=== PATIENT | female | born 1985 | race African-American/Black ===

== ENCOUNTER 2019-07-30 08:42 | Emergency (ER) | payer MEDICAID, SELFPAY ==
--- NOTE | ~2019-07-30 | XR_ITS ---
XR chest 1V portable DATE: 07/30/2019 11:18 INDICATION: Cough, shortness of breath TECHNIQUE: Portable upright AP chest on 07/30/2019 at 1116 hours COMPARISON: 03/11/2017 AP chest FINDINGS: Normal heart size. No hilar or mediastinal enlargement. No pulmonary infiltrate or consolid ation, pleural effusion or pulmonary vascular congestion or pneumothorax. IMPRESSION: Negative Reviewed, dictated and finalized at location A. IMPRESSION: Negative
[2019-07-30 08:49] VITALS: BP 152/93; PULSE 82; RESP 16; TEMP 37.1; O2SAT 98
--- NOTE | 2019-07-30 09:50 | ECG_ITS ---
Measurements Intervals [place] Rate: 74 P: 38 KS: 170 QRS: 13 QRSD: 108 T: 14 QT: 393 QTc: 438 Interpretive Statements SINUS RHYTHM VENTRICULAR PREMATURE COMPLEXES BORDERLINE T WAVE ABNORMALITY- INFERIOR LEADS BASELINE WANDER- I, II, AVR, AVL, AVF, V1-V6 BORDERLINE ECG Electronically Signed On 07-30-2019 10:22:38 CDT by Hipolito Cedillo D.O.
--- NOTE | 2019-07-30 09:51 | ED.GENADULT ---
HPI - General Adult General Chief complaint: Unspecified Stated complaint: cough, chest pain, headache, fever Time Seen by Provider: 07/30/19 09:39 Source: patient Mode of arrival: ambulatory Limitations: no limitations History of Present Illness HPI narrative: This patient is a 34 year old female who presents with complaint fever, cough, sore throat, headache since yesterday. She reports she developed sore throat yesteday. She also has body aches and weakness. She had a fever at home but she is afebrile in ER. She has not taken any medication for her symptoms. She works in a [employer] facility and she is presents with a cousin who has similar symptoms. Onset (ago): day(s) (2) Relieving factors: none Exacerbating factors: none Associated symptoms: chest pain (with coughing), cough, fever/chills, headaches, nausea/vomiting (nausea) and weakness Related Data Allergies Allergy/AdvReac Type Severity Reaction Status Date / Time No Known Allergies Allergy Unverified 07/30/19 08:52 Review of Systems Review of Systems: All systems reviewed & are unremarkable except as noted in HPI and below Constitutional: Constitutional: Reports fever(s) and Reports weakness ENT: Reports headache(s), Reports nasal congestion and Reports sore throat Cardiovascular: Cardiovascular: Reports chest pain Respiratory: Respiratory: Reports cough Gastrointestinal: Gastrointestinal: Reports abdominal pain, Reports diarrhea and Reports nausea Genitourinary: Genitourinary: Reports no additional female genitourinary complaints Musculoskeletal: Musculoskeletal: Reports myalgias PMFSH Past Medical History Medical History (Updated 07/30/19 @ 13:03 by Peggy Fraire MD) Patient denies medical problems Surgical History Surgical History (Updated 07/30/19 @ 09:52 by Peggy Fraire MD) Previous section Exam Narrative: Exam Narrative: GENERAL: well-nourished, and in no acute distress. HEAD: Normocephalic, atraumatic EYES: PERRLA and EOMI, conjunctiva clear without discharge EARS: TM's clear bilaterally without erythema or dullness NOSE: Nares clear, no rhinorrhea or epistaxis THROAT:Mucous membranes moist, Oropharynx normal without erythema, exudate, peritonsillar swelling or fluctuance NECK: Supple, without lymphadenopathy or mass RESPIRATORY: No respiratory distress, Airway patent, Respirations non-labored, Clear to auscultation without rales, rhonchi or wheeze HEART: Regular rate and rhythm. No murmur heard. Normal peripheral pulses. ABDOMEN: Soft, nontender, nondistended, normal active bowel sounds. No masses. No rebound or guarding, No organomegaly. EXTREMITIES: No edema, normal strength with full range of motion. SKIN: Warm, dry, normal color without rash NEURO: Alert and oriented x3. CN 2-12 grossly intact. No focal deficits. PSYCH: Normal mood and affect. Course Reevaluation(s) Reevaluation #1: PAtient states she feels better. I discussed her COVID swab is pending. She will quarantine until results. Date: 07/30/19 Time: 12:59 Vital Signs Vital signs: Vital Signs Temperature 98.7 F 07/30/19 08:49 Pulse Rate 82 07/30/19 08:49 Respiratory Rate 16 07/30/19 08:49 Blood Pressure 152/93 H 07/30/19 08:49 Pulse Oximetry 98 07/30/19 08:49 Temperature 98.7 F 07/30/19 08:49 Pulse Rate 75 07/30/19 12:22 Respiratory Rate 19 07/30/19 12:22 Blood Pressure 158/77 H 07/30/19 12:22 Pulse Oximetry 99 07/30/19 12:22 Medical Decision Making Vital Signs Vital Signs: Vital Signs Temperature 98.7 F 07/30/19 08:49 Pulse Rate 82 07/30/19 08:49 Respiratory Rate 16 07/30/19 08:49 Blood Pressure 152/93 H 07/30/19 08:49 Pulse Oximetry 98 07/30/19 08:49 Temperature 98.7 F 07/30/19 08:49 Pulse Rate 75 07/30/19 12:22 Respiratory Rate 19 07/30/19 12:22 Blood Pressure 158/77 H 07/30/19 12:22 Pulse Oximetry 99 07/30/19 12:22 Lab Data Lab
[2019-07-30 10:09] LABS: Basophils Percent Auto 0.6 % (0.2-1.2); Eosinophils Absolute Auto 0.3 K/mm3 (0-0.3); Eosinophils Percent Auto 5.1 % (0-4.4); Hematocrit 38.2 % (37.0-47.0); Hemoglobin 12.5 g/dL (12.0-15.0); Immature Granulocyte Absolute 0.03 K/mm3 (0.00-0.031); Immature Granulocyte Percent A 0.6 % (0-0.5); Lymphocytes Percent Auto 22.2 % (18.3-44.2); Mean Corpuscular HGB Conc 32.7 g/dl (32-36); Mean Corpuscular Hemoglobin 29.2 pg (26-34); Mean Corpuscular Volume 89.3 fl (80-100); Mean Platelet Volume 10.7 fl (7.4-10.4); Monocytes Percent Auto 19.6 % (2.6-8.5); Neutrophils Absolute Auto 2.6 K/mm3 (1.3-6.7); Neutrophils Percent Auto 51.9 % (45.5-73.1); Platelet Count Result 273 k/mm3 (150-375); Red Blood Count 4.28 M/mm3 (4.2-5.4); Red Cell Distribution Width 14.4 % (11.5-14.5)
[2019-07-30] MEDS: KETOROLAC 30 MG/ML VIAL (*BKC) IV PUSH (10:09)
[2019-07-30] MEDS: LACTATED RINGERS 1,000 ML 999 ML IV CONT (10:09)
[2019-07-30] MEDS: ONDANSETRON INJ 4 MG/2 ML VIAL IV PUSH (10:09)
[2019-07-30 10:20] LABS: Add Urine Microscopic? YES; Appearance Urine Clear (Clear); Bilirubin Urine Negative (Negative); Blood Urine Negative (Negative); Color Urine Straw (Yellow); Glucose Urine UA Negative (Negative); Ketones Urine Negative (Negative); Leukocyte Esterase Ur Trace LEU/UL (Negative); Mucus Urine Rare /lpf; Nitrate Urine Negative (Negative); Protein Urine Negative (Negative); Squamous Epithelial Cell Urine Many /hpf (Few); Urobilinogen Urine Negative mg/dL (<2.0)
[2019-07-30 10:22] LABS: Alanine Aminotransferase 11 U/L (4-35); Albumin Level 4.1 g/dL (3.5-5.1); Alkaline Phosphatase 85 U/L (38-126); Aspartate Amino Transferase 20 U/L (14-36); Bilirubin,Total 0.4 mg/dL (0.2-1.3); Blood Urea Nitrogen 14 mg/dL (7-17); Calcium 8.8 mg/dL (8.4-10.2); Carbon Dioxide 22 mmol/L (22-30); Chloride 105 mmol/L (98-107); Estimated CRCL calculation 158 ml/min; Estimated Glomerular Filt Rate > 60; Glucose 91 mg/dL (65-105); Lipase 49 U/L (23-300); Potassium 4.1 mmol/L (3.4-5.0); Sodium 134 mmol/L (137-145)
[2019-07-30 10:23] LABS: Lactic Acid Reflex 0.7 mmol/L (0.7-2.1)
[2019-07-30 10:30] LABS: Lactate Dehydrogenase 391 U/L (313-618)
[2019-07-30 10:40] LABS: Monoscreen Negative (Negative); Negative Monotest Control Negative (Negative); Positive Monotest Control Positive (Positive)
[2019-07-30 12:22] VITALS: BP 158/77; PULSE 75; RESP 19; O2SAT 99
[2019-07-30 18:13] LABS: SARS-CoV-2 RNA PCR Positive
== END 2019-07-30 13:28 | disposition home or self-care (01) ==
PROVIDERS: Emergency Provider General Practice
DX: U07.1 COVID-19 (principal); I49.3 Ventricular premature depolarization; R94.31 Abnormal electrocardiogram [ECG] [EKG]
CPT/HCPCS: 36415; 71045; 80053; 81001; 81025; 83605; 83615; 83690; 85025; 86308; 87081; 87086; 87088; 87635; 87804; 87880; 93005; 96361; 96374; 96375; 99284; C9803; J1885; J2405; J7120; U0003

== ENCOUNTER 2022-04-02 13:46 | Emergency (ER) | payer BC, SELFPAY ==
[2022-04-02 13:58] VITALS: BP 136/92; PULSE 69; RESP 14; TEMP 36.2; O2SAT 98
[2022-04-02 13:59] VITALS: BP 136/92; PULSE 69; RESP 14; TEMP 36.2; O2SAT 98
--- NOTE | 2022-04-02 14:01 | ED.URI ---
HPI - URI/Sore Throat General Chief Complaint: Upper Respiratory Infection Stated Complaint: Cough/Chest Pain/Throat Time Seen by Provider: 04/02/22 14:03 Source: patient and RN notes reviewed Mode of arrival: ambulatory Limitations: no limitations History of Present Illness HPI Narrative: 37-year-old female presented for complaint of cough and nasal congestion, onset 4 days ago. She endorses 2 days ago she started with this sore throat and fever. Fever up to 102 last night. Cough is nonproductive. She has taken Mucinex and TheraFlu for symptoms. 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 She denies shortness of breath, wheezing, nausea, vomiting or diarrhea. States she had covid one month ago. She states this is how she feels with strep. MD elicited complaint: cough Related Data Home Medications Medication Instructions Recorded Confirmed sumatriptan succinate 50 mg tablet 50 mg PO DIRECTED 04/02/22 04/02/22 topiramate 25 mg tablet 25 mg BID 04/02/22 04/02/22 Allergies Allergy/AdvReac Type Severity Reaction Status Date / Time No Known Allergies Allergy Verified 04/02/22 13:58 Review of Systems Review of Systems: CONSTITUTIONAL: denies malaise, chills, sweats, EYES: Denies visual changes, redness, or discharge ENT: Reports rhinorrhea, congestion, sore throat CARDIOVASCULAR: Denies chest pain, palpitations, edema RESPIRATORY: Reports cough, post nasal drainage. Denies dyspnea GASTROINTESTINAL: Denies abdominal pain, nausea, vomiting, diarrhea SKIN: Denies rash or itching PMFSH Past Medical History Medical History Patient denies medical problems Surgical History Surgical History Previous section Exam Narrative: GENERAL: Mildly Ill-appearing, nontoxic EYES: PERRLA, conjunctivae clear ENT: Mucous membranes moist. TMs pearly arias with dull light reflex bilaterally; no tragal tenderness. Oropharynx erythematous without lesions or exudate, tonsils 2+ no drooling, no hoarseness, no trismus, uvula midline. No tripod positioning, muffled voice, soft palate or pharyngeal wall bulging NECK: Supple. No lymphadenopathy CHEST: Clear to auscultation, breath sounds equal. No wheezing, rhonchi, rales, or stridor. No respiratory distress, speaks in full sentences. Occasional [employer]IEF [employer]LECT[employer]ICIAN cough. HEART: Regular rate and rhythm. No murmur heard. SKIN: Warm, dry, no rash. Course Course Emergency Course: Patient is aware of diagnosis, understands and agrees to treatment plan. Anticipatory guidance given. Patient agrees to follow-up as directed and is aware of reasons to seek care at the emergency department. Portions of this record may have been created with voice recognition software Level of Care: Express Care Visit Vital Signs Vital signs: Vital Signs Temperature 97.2 F L 04/02/22 13:58 Pulse Rate 69 04/02/22 13:58 Respiratory Rate 14 04/02/22 13:58 Blood Pressure 136/92 H 04/02/22 13:58 Pulse Oximetry 98 04/02/22 13:58 Oxygen Delivery Room Air 04/02/22 13:58 Temperature 97.2 F L 04/02/22 13:59 Pulse Rate 69 04/02/22 13:59 Respiratory Rate 14 04/02/22 13:59 Blood Pressure 136/92 H 04/02/22 13:59 Pulse Oximetry 98 04/02/22 13:59 Oxygen Delivery Room Air 04/02/22 13:59 reviewed MDM - URI/Sore Throat MDM Narrative Medical decision making narrative: Results of strep test reviewed with patient. Will send abx, Based on PE and cc. Advised supportive measures and signs/symptoms to go to the ER. Pt is appropriate for outpt treatment and f/u. Differential Diagnosis Differential diagnosis: Likely upper respiratory infection, sinusitis and viral infection Discharge Plan Discharge Clinical Impression: Upper respiratory infection Patient Disposition: Home, Self-Care Condition: Stable Instructions: Antibiotic Form, Upper Resp
== END 2022-04-02 14:20 | disposition home or self-care (01) ==
PROVIDERS: Emergency Provider Nurse Practitioner Family; PCP Physician Assistant
DX: J06.9 Acute upper respiratory infection, unspecified (principal)
CPT/HCPCS: 87081; 87880; 99213; G0463

== ENCOUNTER 2022-10-26 15:00 | Emergency (ER) | payer OTHER, BC, SELFPAY ==
[2022-10-26 15:23] VITALS: BP 129/92; PULSE 64; RESP 18; TEMP 36.3; O2SAT 100
--- NOTE | 2022-10-26 15:44 | ED.WOUNDLAC ---
HPI - Wound/Laceration General Chief Complaint: Wound/Laceration Stated Complaint: Cut finger Time Seen by Provider: 10/26/22 15:45 Source: patient, RN notes reviewed and old records reviewed Mode of arrival: ambulatory Limitations: no limitations History of Present Illness HPI narrative: 37-year-old female presents to the [facility] with complaints of a cutting off a a small piece of the tip of the left thumb. Patient states that she was chopping stuff at work when she cut her thumb. Bleeding controlled. Has taken Tylenol. Reports tetanus shot was at least 6 years ago. Related Data Allergies Allergy/AdvReac Type Severity Reaction Status Date / Time No Known Allergies Allergy Verified 10/26/22 17:37 Review of Systems Review of Systems: All systems reviewed & are unremarkable except as noted in HPI and below Constitutional: Constitutional: Reports no additional constitutional complaints Eyes: Eyes: Reports no additional eye complaints ENT: Reports system reviewed and no additional complaints, except as documented Cardiovascular: Cardiovascular: Reports no additional cardiovascular complaints, Denies chest pain and Denies dyspnea Respiratory: Respiratory: Reports no additional respiratory complaints, Denies chest congestion, Denies cough and Denies dyspnea Gastrointestinal: Gastrointestinal: Reports no additional gastrointestinal complaints, Denies abdominal pain, Denies nausea and Denies vomiting Musculoskeletal: Musculoskeletal: Reports no additional musculoskeletal complaints Integumentary/Breasts: Skin/Breast: Reports as per HPI Neurologic: Reports system reviewed and no additional complaints, except as documented Psychiatric: Psychiatric: Reports no additional psychiatric complaints Allergic/Immunologic: Allergic/Immunologic: Reports no additional allergic/immunologic complaints PMFSH Past Medical History Medical History Patient denies medical problems Surgical History Surgical History Previous section Comments At the time of my signature, I reviewed and agree with the nursing past medical, surgical, social, and family history. There is no relevant family history pertinent to the patient complaint. Exam Const: General: cooperative, healthy appearing, comfortable, no acute distress, well developed, alert and well nourished Nutritional Appearance: well nourished Orientation/consciousness: patient oriented x3 Limitations: no limitations HENMT: Head: normal to inspection Ears: hearing grossly normal bilaterally and external ears normal Face/Nose/Sinus: Normal external nose present, Normal nares present, Normal nasal mucous membranes and turbinates present, normal facial exam and face symmetric Face and sinus: normal facial exam and face symmetric Eyes: General: appearance normal, both eyes and all related structures Alignment and Position: alignment normal Periorbital: periorbital findings normal Pupils: Equal, round and reactive pupils present EOM: EOMs intact bilaterally Neck: Neck: normal visual inspection, full ROM, no lymphadenopathy and no meningeal signs Chest: Chest palpation & inspection: normal inspection of the chest Resp: Effort & Inspection: normal respiratory effort and able to speak in complete sentences Cardio: Rate: regular rate Back/Spine/Pelvis: Cervical Spine: cervical ROM normal Skin: General skin exam: normal color and no rashes or lesions noted Lesions: no lesions Rashes: no rashes Other: Avulsion tip of left thumb involving finger nail. 0.5 cm diameter. Bleeding controlled. Neuro: General: patient oriented x3, gait normal, tone normal, moves all extremities and no meningeal signs Cranial nerves: Yes Equal, round and reactive pupils present Cognition (Neuro): normal cognition Speech: normal speech Gait exam (Neuro): Normal gait present E
[2022-10-26] MEDS: TETANUS,DIPHTHERIA,AC PERTUSSIS ADULT (0.5 ML) BOOSTRIX IM (16:07)
== END 2022-10-26 16:19 | disposition home or self-care (01) ==
PROVIDERS: Emergency Provider Nurse Practitioner
DX: S61.002A Unspecified open wound of left thumb without damage to nail, initial encounter (principal); W26.0XXA Contact with knife, initial encounter; Z23 Encounter for immunization
CPT/HCPCS: 90471; 90715; 99213; G0463

== ENCOUNTER 2023-06-18 06:51 | Emergency (ER) | payer BC, SELFPAY ==
--- NOTE | ~2023-06-18 | XR_ITS ---
Clinical Indication: Chest pain PA and lateral views of the chest: Comparison: 07/30/2019 Findings: The lungs are clear, without evidence of focal consolidation or pleural effusion. Cardiome diastinal silhouette is within normal limits. Bones and soft tissues are unremarkable. Impression: Normal chest. Reviewed, dictated and finalized at location . Impression: Normal chest.
--- NOTE | 2023-06-18 06:56 | ECG_ITS ---
SEE SCANNED COPY FOR CONFIRMED REPORT. MTDD
[2023-06-18 07:00] VITALS: BP 146/96; PULSE 67; RESP 16; TEMP 36.6; O2SAT 100
[2023-06-18 07:03] LABS: Basophils Absolute Auto 0.1 K/mm3 (0.0-0.1); Eosinophils Absolute Auto 0.6 K/mm3 (0-0.3); Eosinophils Percent Auto 9.2 % (0-4.4); Hematocrit 39.5 % (37.0-47.0); Hemoglobin 12.9 g/dL (12.0-15.0); Immature Granulocyte Absolute 0.01 K/mm3 (0.00-0.031); Immature Granulocyte Percent A 0.2 % (0-0.5); Lymphocytes Absolute Auto 2.39 K/mm3 (0.9-3.2); Lymphocytes Percent Auto 39.3 % (18.3-44.2); Mean Corpuscular HGB Conc 32.7 g/dl (32-36); Mean Corpuscular Hemoglobin 29.7 pg (26-34); Mean Corpuscular Volume 90.8 fl (80-100); Mean Platelet Volume 9.6 fl (7.4-10.4); Monocytes Absolute Auto 0.6 K/mm3 (0.1-0.6); Monocytes Percent Auto 9.5 % (2.6-8.5); Neutrophils Absolute Auto 2.5 K/mm3 (1.3-6.7); Neutrophils Percent Auto 40.8 % (45.5-73.1); Platelet Count Result 331 k/mm3 (150-375); Red Blood Count 4.35 M/mm3 (4.2-5.4); Red Cell Distribution Width 13.7 % (11.5-14.5); White Blood Count 6.1 K/mm3 (4.5-10.0)
[2023-06-18 07:13] LABS: INR 0.9
[2023-06-18 07:14] LABS: Partial Thromboplastin Time 25.1 Seconds (22.3-36.8)
[2023-06-18 07:18] LABS: Alanine Aminotransferase 12 U/L (6-35); Albumin Level 4.1 g/dL (3.5-5.1); Alkaline Phosphatase 79 U/L (38-126); Anion Gap 5 mmol/L (4-12); Aspartate Amino Transferase 20 U/L (14-36); Bilirubin,Total 0.3 mg/dL (0.2-1.3); Blood Urea Nitrogen 19 mg/dL (7-17); Calcium 9.2 mg/dL (8.4-10.2); Carbon Dioxide 24 mmol/L (22-30); Chloride 110 mmol/L (98-107); Estimated CRCL calculation 138 ml/min; Estimated Glomerular Filt Rate > 60; Glucose 119 mg/dL (65-110); Lipase 56 U/L (23-300); Sodium 139 mmol/L (137-145)
[2023-06-18 07:30] LABS: Troponin I < 0.012 ng/mL (0.000-0.034)
[2023-06-18 07:45] VITALS: BP 134/94; PULSE 64; RESP 13; TEMP 36.7; O2SAT 98
[2023-06-18] MEDS: KETOROLAC 30 MG/ML VIAL (*BKC) IV PUSH (07:46)
[2023-06-18] MEDS: ONDANSETRON INJ 4 MG/2 ML VIAL IV PUSH (07:46)
--- NOTE | 2023-06-18 07:55 | ED.CHESTPAIN ---
HPI - Chest Pain General Chief Complaint: Chest Pain Stated Complaint: chest pain, migraine Time Seen by Provider: 06/18/23 07:02 History of Present Illness HPI narrative: Patient is a 38-year-old female who presents the ER with chest pain. Ongoing for 2 days. Aching. Central and left-sided. Has some discomfort where her pectoralis insert set her left shoulder. No numbness or tingling. No exertional chest discomfort. She reports chronic shortness of breath due to being out of shape and obesity. No hemoptysis. No fevers or chills or sweats. She is also having throbbing headache. She is tearful in the ER. Related Data Allergies Allergy/AdvReac Type Severity Reaction Status Date / Time No Known Allergies Allergy Verified 10/26/22 17:37 Review of Systems Review of Systems: All systems reviewed & are unremarkable except as noted in HPI and below Constitutional: Constitutional: Reports no additional constitutional complaints ENT: Reports system reviewed and no additional complaints, except as documented Cardiovascular: Cardiovascular: Reports chest pain, Denies rapid heart rate and Reports radiating jaw, neck or arm pain Respiratory: Respiratory: Reports no additional respiratory complaints Gastrointestinal: Gastrointestinal: Reports no additional gastrointestinal complaints Musculoskeletal: Musculoskeletal: Reports no additional musculoskeletal complaints Neurologic: Reports headache(s), Denies focal weakness and Denies numbness PMFSH Past Medical History Medical History Patient denies medical problems Surgical History Surgical History Previous section Exam Narrative: GENERAL: Tearful-appearing, morbidly obese, and in no acute distress. HEAD: Normocephalic, atraumatic. ENT: Mucous membranes moist. CHEST: Clear to auscultation. No respiratory distress. HEART: Regular rate and rhythm. Normal peripheral pulses. ABDOMEN: Soft, nontender, nondistended. EXTREMITIES: Normal range of motion. No edema. SKIN: Warm, dry, no rash. NEURO: Alert and oriented x3. PSYCH: Normal mood and affect. Course Course Emergency Course: headache and chest wall pain improving with Toradol. Labs reassuring as is EKG. Appropriate for discharge home. Vital Signs Vital signs: Vital Signs Temperature 97.8 F 06/18/23 07:00 Pulse Rate 67 06/18/23 07:00 Respiratory Rate 16 06/18/23 07:00 Blood Pressure 146/96 H 06/18/23 07:00 Pulse Oximetry 100 06/18/23 07:00 Oxygen Delivery Room Air 06/18/23 07:00 Temperature 97.8 F 06/18/23 07:00 Pulse Rate 67 06/18/23 07:00 Respiratory Rate 16 06/18/23 07:00 Blood Pressure 146/96 H 06/18/23 07:00 Pulse Oximetry 100 06/18/23 07:00 Oxygen Delivery Room Air 06/18/23 07:00 MDM - Chest Pain Lab Data 06/18/23 06:58 06/18/23 06:58 Labs: Lab Results 06/18/23 Range/Units 06:58 WBC 6.1 (4.5-10.0) K/mm3 RBC 4.35 (4.2-5.4) M/mm3 Hgb 12.9 (12.0-15.0) g/dL Hct 39.5 (37.0-47.0) % MCV 90.8 (80-100) fl MCH 29.7 (26-34) pg MCHC 32.7 (32-36) g/dl RDW 13.7 (11.5-14.5) % Plt Count 331 (150-375) k/mm3 MPV 9.6 (7.4-10.4) fl Immature Gran % (Auto) 0.2 (0-0.5) % Neut % (Auto) 40.8 L (45.5-73.1) % Lymph % (Auto) 39.3 (18.3-44.2) % [place] % (Auto) 9.5 H (2.6-8.5) % Eos % (Auto) 9.2 H (0-4.4) % Baso % (Auto) 1.0 (0.2-1.2) % Lymph # (Auto) 2.39 (0.9-3.2) K/mm3 [place] # (Auto) 0.6 (0.1-0.6) K/mm3 Eos # (Auto) 0.6 H (0-0.3) K/mm3 Baso # (Auto) 0.1 (0.0-0.1) K/mm3 Abs Immat Gran (auto) 0.01 (0.00-0.031) K/mm3 Absolute Neuts (auto) 2.5 (1.3-6.7) K/mm3 Absolute Nucleated RBC 0.000 (0.0-0.012) K/mm3 Nucleated RBC % 0.0 (0.0-0.2) % PT 13.0 (11.1-14.7) Seconds INR 0.9 APTT 25.1 (22.3-36.8) Seconds Sodium 139 (137-145) mmol
[2023-06-18 08:34] VITALS: BP 136/82; PULSE 64; RESP 17; TEMP 36.8; O2SAT 98
[2023-06-18 09:19] VITALS: BP 132/80; PULSE 63; RESP 15; TEMP 36.7; O2SAT 99
== END 2023-06-18 09:41 | disposition home or self-care (01) ==
PROVIDERS: Emergency Medicine; Emergency Provider Emergency Medicine
DX: R07.89 Other chest pain (principal); R51.9 Headache, unspecified
CPT/HCPCS: 36415; 71046; 80053; 83690; 84484; 85025; 85610; 85730; 93005; 96374; 96375; 99284; J1885; J2405

== ENCOUNTER 2025-01-17 10:43 | Emergency (ER) | payer BC, SELFPAY ==
--- NOTE | ~2025-01-17 | XR_ITS ---
Examination: XR abdomen/kub 1V Clinical History: L flank pain x6 days Comparison: None Technique: Supine AP abdomen Findings: Lung bases clear. 4 mm calcification overlying left upper pole renal shadow. Pelvic phleboliths. Scattered colonic gas and stool. Small bowel loops poorly seen. No acute bony abnormality. IMPRESSION: 1. 4 mm calcification left upper quadrant likely renal stone. Reviewed, dictated and finalized at location R. K INSPECTING SUPERVISOR
[2025-01-17 10:55] VITALS: BP 128/80; PULSE 70; RESP 16; TEMP 36; O2SAT 100
--- NOTE | 2025-01-17 11:19 | ED_ITS ---
HPI - Back Pain/Injury General Chief Complaint: Back Pain/Injury Stated Complaint: Back Pain/Side Pain Time Seen by Provider: 01/17/25 10:54 Source: patient and RN notes reviewed Mode of arrival: ambulatory Limitations: no limitations History of Present Illness HPI Narrative: 39-year-old female patient presents today with left mid back pain x6 days. Denies injury, trauma, recent heavy lifting or illness, recent immobilization or travel, recent surgery, , history of clotting disorder, recent leg swelling or redness.. States symptoms have worsened over the past couple of days. Denies much pain at rest, but this increases significantly with movement, cough, sneezing. She currently rates her pain 8/10 and has tried Tylenol and a topical patch with some improvement. Denies urinary symptoms, nausea or vomiting, shortness of breath, chest pain. Related Data Home Medications ?Medication ?Instructions ?Recorded ?Confirmed ?Last Taken ?Type No Home Medications 01/17/25 01/17/25 U nknown History Allergies Allergy/AdvReac Type Severity Reaction Status Date / Time No Known Allergies Allergy Verified 01/17/25 10:51 [facility] Past Medical History Medical History Patient denies medical problems Surgical History Surgical History Previous section Comments At time of signature, I have reviewed and agree with nursing past medical, surgical, social and family history unless otherwise noted. Please see nursing chart for further information. There is no relevant family history pertinent to the presenting complaint Exam Narrative: GENERAL: Well-appearing, well-nourished, and in no acute distress. HEAD: Normocephalic, atraumatic. EYES: EOMI. No redness or drainage. Conjunctivae normal. ENT: Mucous membranes pink and moist. NECK: Normal AROM. CHEST: No respiratory distress. Clear to auscultation. HEART: Regular rate and rhythm. No murmur appreciated. Normal peripheral pulses. ABDOMEN: Soft, nontender, nondistended, normal active bowel sounds. Tenderness to the left mid back at the bra line. No tenderness on the right. No lumbar tenderness. MUSCULOSKELETAL: No bony tenderness of the spine. EXTREMITIES: Normal range of motion. No edema. SKIN: Warm, dry, no rash. Capillary refill normal. Normal skin turgor. NEURO: No focal deficits. Alert and oriented x3. Gait steady. PSYCH: Normal affect. No signs of depression or anxiety. Course Course Level of Care: Express Care Visit Vital Signs Vital signs: Vital Signs Temperature 96.8 F L 01/17/25 10:55 Pulse Rate 70 01/17/25 10:55 Respiratory Rate 16 01/17/25 10:55 Blood Pressure 128/80 01/17/25 10:55 Pulse Oximetry 100 01/17/25 10:55 Temperature 96.8 F L 01/17/25 10:55 Pulse Rate 70 01/17/25 10:55 Respiratory Rate 16 01/17/25 10:55 Blood Pressure 128/80 01/17/25 10:55 Pulse Oximetry 100 01/17/25 10:55 Reviewed Transfer Transfered to: [facility] Transportation: Other (private vehicle) Transfer rationale: left flank pain, renal stone Accepting physician: Lina. Report given to Barbara Bales PA-C [facility] - Back Pain/Injury MDM Narrative Medical decision making narrative: 39-year-old female patient presents today with left mid back pain x6 days. Denies injury, trauma, recent heavy lifting or illness, recent immobilization or travel, recent surgery, , history of clotting disorder, recent leg swelling or redness.. States symptoms have worsened over the past couple of days. Denies much pain at rest, but this increases significantly with movement, cough, sneezing. She currently rates her pain 8/10 and has tried Tylenol and a topical patch with some improvement. Denies urinary symptoms, nausea or vomiting, shortness of breath, chest pain. Currently menstruating. Upon exam, Tenderness to the left mid back at the bra line. No tenderness on the right. No lumbar tenderness. Xray shows 4mm renal stone. Due to duration of patient's symptoms and severity of pain, will transfer her to the ED for further evaluation. Patient agrees with plan. Vital signs stable. Anticipatory guidance given. Differential Diagnosis Differential diagnosis: Likely thoracic back pain and other (Musculoskeletal pain, kidney stone, PE.) Imaging Data Radiologist's impression: ITS Impressions Abdomen X-Ray 01/17/25 11:32 IMPRESSION: 1. 4 mm calcification left upper quadrant likely renal stone. Critical Care Time Critical Care Time Critical Care Time: No Discharge Plan Discharge Clinical Impression: Left flank pain, Calculus of left kidney Patient Disposition: Acute Care Hospital Condition: Stable Patient Language: Indonesian Prescriptions: No Action No Home Medications Follow-up/Referrals: PHYSICIAN,[employer] [Primary Care Provider, Internal Medicine] Time of Disposition: 11:52
== END 2025-01-17 11:52 | disposition short-term general hospital (02) ==
PROVIDERS: Emergency Provider Nurse Practitioner
DX: R10.A2 Flank pain, left side (principal); N20.0 Calculus of kidney
CPT/HCPCS: 74018; 99213; G0463

== ENCOUNTER 2025-01-17 12:58 | Emergency (ER) | payer SELFPAY ==
--- NOTE | ~2025-01-17 | CT_ITS ---
EXAMINATION: CT abdomen pelvis wo con DATE: 01/17/2025 16:38 INDICATION: Left flank pain TECHNIQUE: Computed tomography (CT) of the abdomen and pelvis was performed without intravenous contrast. Automated exposure control and iterative reconstruction technique were employed. The dose-length product was 842.37 mGy-cm. COMPARISON: None FINDINGS: Mild atelectasis at the anterior lingula. Heart size normal. No pericardial or pleural effusion. 9 mm cyst in the left hepatic lobe. Gallbladder, spleen, pancreas and bilateral adrenal glands are normal. Bilateral nonobstructing nephrolithiasis with 7 mm stone at an upper pole calyx of the left kidney and 2 additional one-2 mm stones more caudally in the left kidney and 1 mm stone at the lower pole of the right kidney. Multiple calcifications in the pelvis which appear more likely to represent phleboliths. No definitive ureteral stones or hydronephrosis on either the left or right. Bowels including the appendix are normal. Bladder is normal. 1.2 cm likely subserosal fibroid along the fundal margin of the anteverted uterus. Bilateral adnexa are unremarkable. No free intraperitoneal gas or fluid. No pathologically enlarged abdominal or pelvic lymphadenopathy. Mild thoracolumbar levocurvature. IMPRESSION: 1. Bilateral nonobstructing nephrolithiasis. No evident ureteral stones or hydronephrosis. 2. 1.2 cm subserosal uterine fibroid. Reviewed, dictated and finalized at location A. ATE CHANGE RISK ASSESSOR IMPRESSION: 1. Bilateral nonobstructing nephrolithiasis. No evident ureteral stones or hydr onephrosis. 2. 1.2 cm subserosal uterine fibroid.
[2025-01-17 13:03] VITALS: BP 147/90; PULSE 69; RESP 16; TEMP 36.8; O2SAT 100
--- OUTSIDE RECORDS SUMMARY | 2025-01-17 14:10 | XMS_ITS | Clinical Summary ---
Author Organization [facility] Address [address] [place] [address] Care Team Providers Care Drop Man Name Role Phone Unavailable Primary Care Provider Unavailabl e Source Comments [facility],non-owned Affiliates and Associated Physician Practices is amultiple site organization consisting of ambulatory clinics and hospital sitesin [place], [place], [place] and [place]. This disclosure is being madepursuant to the Care Everywhere program and may not contain all information available regarding this patient. Last updated 17.[facility] Allergies No known active allergies Medications * Be aware that medications may not be up to date on this document. Alwaysverify current medications with the patient. HYDROcodone-acet aminophen (NORCO) 5-325 MG tablet Take 1 tablet by mouth every 6 hours as needed for Pain 8 tablet 08/26/2019 Active ibuprofen (MOTRIN) 600 MG tablet Take 1 tablet by mouth every 6 hours as needed for Pain 30 tablet 08/26/2019 Active Immunizations Immunization Administration Dates Next Due TDAP (7yrs+) 08/26/2019 Social History Tobacco Use Types Packs/Day Years Used Date Smoking Tobacco: Never Smokeless Tobacco: Never Alcohol Use Standard Drinks/Week Comments Yes 0 (1 standard drink = 0.6 oz pur e alcohol) time to time Comments Unknown Sex and Gender Information Value Date Recorded Sex Assigned at Not on file Legal Sex Female 11:48 PM CDT Gender Identity Not on file Sexual Orientation Not on file Last Filed Vital Signs Vital Sign Reading Time Taken Comments Blood Pressure 124/74 08/26/2019 2:48 AM CDT Pulse 94 08/26/2019 2:48 AM CDT Temperature 37.1 C (98.7 F) 08/25/2019 11:53 PM CDT Respiratory Rate 16 08/26/2019 12:43 AM CDT Oxygen Saturation 98% 08/26/2019 2:48 AM CDT Inhaled Oxygen Concentration - - Weight 99.8 kg (220 lb) 08/25/2019 11:52 PM CDT Height 175.3 cm (5' 9) 08/25/2019 11:52 PM CDT Body Mass Index 32.49 08/25/2019 11:52 PM CDT Plan of Treatment Health Maintenance Due Date Last Done Comments HIV SCREENING 2001 HEPATITIS C SCREENING 03/23/2004 HEPATITIS B VACCINE (1 of 3 - 19+ 3-dose series) 2005 PAP SMEAR 2007 HPV VACCINE (1 - 3-dose SCDM series) 2013 Cervical Cancer Screening 2016 PAP with HPV 2016 DEPRESSION SCREENING 02/18/2024 COVID-19 VACCINE (1 - 2024-2 6 season) 2024 INFLUENZA VACCINE (#1) 2024 DTAP/TDAP/TD VACCINES (2 - T d or Tdap) 08/25/2029 08/26/2019 ZOSTER VACCINE (1 of 2) 2036 HIB VACCINE Aged Out No longer eligi ble based on patient's age to complete this topic MENINGOCOCCAL (Group B) VACC INE SHARED DECISION-MAKING Aged Out No longer eligibl e based on patient's age to complete this topic MENINGOCOCCAL GROUPS A/C/Y/W VACCINE Aged Out No longer eligible b ased on patient's age to complete this topic PNEUMOCOCCAL VACCINE Aged Out No long er eligible based on patient's age to complete this topic Insurance [facility] MEDICAID
--- OUTSIDE RECORDS SUMMARY | 2025-01-17 14:10 | XMS_ITS | Clinical Summary ---
Author Organization [facility] Care Team Providers Care Eligibility Services Representative Name Role Phone Unavailable Primary Care Provider Unavailabl e Social History Tobacco Use Types Packs/Day Years Used Date Smoking Tobacco: Never Assessed Comments Unknown Sex and Gender Information Value Date Recorded Sex Assigned at Not on file Legal Sex Female 10:01 AM CDT Gender Identity Not on file Sexual Orientation Not on file Plan of Treatment Health Maintenance Due Date Last Done Comments Hepatitis C Virus (HCV) Screening 1986 Hepatitis B Immunization (1 of 3 - 19+ 3-dose series) 2005 Pap Smear 2007 Human Papillomavirus (HPV) Immunization (1 - 3-dose SCDM series) 2013 Cervical Cancer Screening (CCS) 2016 HPV/Cotest 2016 Influenza Immunization (#1) 2024 SARS-COV-2 Immunization ( season) 2024 06/14/2020, 05/12/2020 Respiratory Syncytial Virus (RSV) Immunization (Adult) (1 - 1-dose 75+ series) 2061 DTaP/Tdap/Td Immunization Discontinued 08/25/2019 TdaP Immunization Completed 08/25/2019 Meningococcal Immunization (ACWY) Aged Out No longer eligible based on patient's age to complete this topic Pneumococcal Immunization Combined Aged Out No longer eligible based on patient's age to complete this topic Rotavirus Immunization Aged Out No lo nger eligible based on patient's age to complete this topic
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
[2025-01-17 15:39] LABS: BEDSIDEPREGUCG Negative (Negative)
[2025-01-17 15:49] LABS: Hematocrit 37.8 % (37.0-47.0); Hemoglobin 12.4 g/dL (12.0-15.0); Immature Granulocyte Percent A 0.3 % (0-0.5); Lymphocytes Absolute Auto 2.59 K/mm3 (0.9-3.2); Mean Corpuscular HGB Conc 32.8 g/dl (32-36); Mean Corpuscular Hemoglobin 29.5 pg (26-34); Mean Corpuscular Volume 89.8 fl (80-100); Nucleated Red Blood Cells Absolute Auto 0.000 K/mm3 (0.0-0.012); Nucleated Red Blood Cells Perc 0.0 % (0.0-0.2); Platelet Count Result 300 k/mm3 (150-375); Red Blood Count 4.21 M/mm3 (4.2-5.4); White Blood Count 6.8 K/mm3 (4.5-10.0)
[2025-01-17 15:55] LABS: Add Urine Microscopic? YES; Appearance Urine Cloudy (Clear); Glucose Urine UA Negative (Negative); Leukocyte Esterase Ur Negative LEU/UL (Negative); Nitrate Urine Negative (Negative); Non Pathogenic Casts 0-2; Specific Grav Ur 1.021 (1.001-1.035)
[2025-01-17 16:03] LABS: Alanine Aminotransferase 13 U/L (6-35); Albumin Level 4.0 g/dL (3.5-5.1); Alkaline Phosphatase 74 U/L (38-126); Anion Gap 1 mmol/L (4-12); Aspartate Amino Transferase 22 U/L (14-36); Bilirubin,Total 0.5 mg/dL (0.2-1.3); Blood Urea Nitrogen 14 mg/dL (7-17); Calcium 8.9 mg/dL (8.4-10.2); Carbon Dioxide 26 mmol/L (22-30); Chloride 108 mmol/L (98-107); Estimated CRCL calculation 143 ml/min; Estimated Glomerular Filt Rate > 60; Glucose 84 mg/dL (65-110); Lipase 28 U/L (23-300); Sodium 135 mmol/L (137-145); Total Protein 7.4 g/dL (6.3-8.2)
[2025-01-17 16:11] LABS: Potassium 4.1 mmol/L (3.4-5.0)
[2025-01-17] MEDS: oxyCODONE/ACETAMINOPHEN (*CRX) 5-325 MG TABLET 1 TABLET PO (17:22)
--- NOTE | 2025-01-17 19:02 | ED.FEMALEGU ---
HPI - Female Genitourinary General Chief complaint: Urogenital-Female Stated complaint: L flank pain Time Seen by Provider: 01/17/25 15:24 History of Present Illness HPI Narrative: Patient presenting here with left flank pain, has been ongoing now for few days, no dysuria, no history of kidney stones. No nausea vomiting. Related Data Allergies Allergy/AdvReac Type Severity Reaction Status Date / Time No Known Allergies Allergy Verified 01/17/25 10:51 Review of Systems Review of Systems: All systems reviewed & are unremarkable except as noted in HPI and below PMFSH Past Medical History Medical History Patient denies medical problems Surgical History Surgical History Previous section Exam Narrative: EXAMINATION OF ORGAN SYSTEMS/BODY AREAS: Constitutional: Vital signs per nursing GENERAL:[No acute distress, non-toxic appearing.] HEAD: Normal with no signs of head trauma. EYES: EOMI, conjunctiva normal ENT: Hearing grossly intact LUNGS: Nonlabored breathing. HEART: [Regular rate and rhythm] ABD: [Soft], slightly tender to left flank EXT: Normal range of motion SKIN: [No rashes or lesions.] NEURO: [Alert and oriented x 3. No gross focal sensory or strength deficits.] PSYCH: Normal affect Course Vital Signs Vital signs: Vital Signs Temperature 98.2 F 01/17/25 13:03 Pulse Rate 69 01/17/25 13:03 Respiratory Rate 16 01/17/25 13:03 Blood Pressure 147/90 H 01/17/25 13:03 Pulse Oximetry 100 01/17/25 13:03 Oxygen Delivery Room Air 01/17/25 13:03 Temperature 98.2 F 01/17/25 13:03 Pulse Rate 69 01/17/25 13:03 Respiratory Rate 16 01/17/25 13:03 Blood Pressure 147/90 H 01/17/25 13:03 Pulse Oximetry 100 01/17/25 13:03 Oxygen Delivery Room Air 01/17/25 13:03 [facility] MDM Narrative Medical decision making narrative: Patient presenting with left-sided flank pain, has not had this in the past, on exam she does have left-sided flank tenderness. Vital signs normal, labs within acceptable limits other than some blood in her urine however she is currently on her period, CT abdomen/pelvis shows some small kidney stones, none in the ureter, she does also have a fibroid. Discussed findings with patient, and follow-up to Urology, pain medications prescribed. Stable for discharge with return precautions Differential Diagnosis Differential Diagnosis: Pyelonephritis, kidney stone, pulled muscle, etc Lab Data 01/17/25 15:39 01/17/25 15:39 Labs: Lab Results 01/17/25 01/17/25 Range/Units 15:38 15:39 WBC 6.8 (4.5-10.0) K/mm3 RBC 4.21 (4.2-5.4) M/mm3 Hgb 12.4 (12.0-15.0) g/dL Hct 37.8 (37.0-47.0) % MCV 89.8 (80-100) fl MCH 29.5 (26-34) pg MCHC 32.8 (32-36) g/dl RDW 14.0 (11.5-14.5) % Plt Count 300 (150-375) k/mm3 MPV 9.2 (7.4-10.4) fl Immature Gran % (Auto) 0.3 (0-0.5) % Neut % (Auto) 45.9 (45.5-73.1) % Lymph % (Auto) 38.1 (18.3-44.2) % [place] % (Auto) 8.0 (2.6-8.5) % Eos % (Auto) 7.1 H (0-4.4) % Baso % (Auto) 0.6 (0.2-1.2) % Lymph # (Auto) 2.59 (0.9-3.2) K/mm3 [place] # (Auto) 0.5 (0.1-0.6) K/mm3 Eos # (Auto) 0.5 H (0-0.3) K/mm3 Baso # (Auto) 0.0 (0.0-0.1) K/mm3 Abs Immat Gran (auto) 0.02 (0.00-0.031) K/mm3 Absolute Neuts (auto) 3.1 (1.3-6.7) K/mm3 Absolute Nucleated RBC 0.000 (0.0-0.012) K/mm3 Nucleated RBC % 0.0 (0.0-0.2) % Sodium 135 L (137-145) mmol/L Potassium 4.1 (3.4-5.0) mmol/L Chloride 108 H (98-107) mmol/L Carbon Dioxide 26 (22-30) mmol/L Anion Gap 1 L (4-12) mmol/L BUN 14 D (7-17) mg/dL Creatinine 0.66 L (0.7-1.0) mg/dL Estim Creat Clear Calc 143 ml/min Estimated GFR > 60 (59 - ) Glucose 84 (65-110) mg/dL Calcium 8.9 (8.4-10.2) mg/dL Total Bilirubin 0.5 (0.2-1.3) mg/dL AST 22 (14-36) U/L ALT 13 (6-35) U/L Alkaline Phosphatase 74 (38-126) U/L Total Protein 7.4 (6.3-8.2) g/dL Albumin 4.0 (3.5-5.1) g/dL Lipase 28 (23-300) U/L Urine Color Yellow (Yellow) Urine Appearance Cloudy H (Clear) Urine pH 7.5 (5.0-9.0) Ur Specific [place] 1.021 (1.001-1.035) Urine Protein Trace (Negative) mg/dL Urine Glucose (UA) Negative (Negative) mg/dL Urine Ketones Negative (Negative) mg/dL Ur Blood (Man) 3+ H (Negative) Urine Nitrate Negative (Negative) Urine Bilirubin Negative (Negative) Urine Urobilinogen 0.2 (<2.0) mg/dL Leukocyte Esterase Rfl Negative (Negative) [place]/UL Urine RBC 11-20 H (0-2) /hpf Urine WBC 0-5 (0-3) /hpf Ur Squamous Epith Cells None seen (Few) /hpf Urine Bacteria None seen /hpf Urine Casts 0-2 POC Urine HCG, Qual Negative (Negative) Imaging Data Radiologist's impression: ITS Impressions Abdomen/Pelvis CT 01/17/25 16:46 IMPRESSION: 1. Bilateral nonobstructing nephrolithiasis. No evident ureteral stones or hydronephrosis. 2. 1.2 cm subserosal uterine fibroid. Discharge Plan Discharge Clinical Impression: Fibroid, Kidney stone Patient Disposition: Home Condition: Stable Instructions: Uterine Fibroids (ED), Flank Pain (ED) Additional Instructions: You can follow-up with Urology, and come back to the ER for any further issues. Patient Language: Chinese Prescriptions: New ketorolac 10 mg tablet 10 mg PO Q6H PRN (Reason: pain) Qty: 20 0RF Rx Instructions: maximum total duration of 5 days from all oral, intranasal, or parenteral formulations methocarbamol 750 mg tablet 750 mg PO TID PRN (Reason: muscle spasm) Qty: 30 0RF Follow-up/Referrals: Froilan Melton MD [Physician, Urology] - 2 Days PHYSICIAN,CHAIN MAKER [Primary Care Provider, Internal Medicine] Stand Alone Forms: Work/School Release IP
== END 2025-01-17 17:54 | disposition home or self-care (01) ==
PROVIDERS: Student in an Organized Health Care Education/Training Program; Emergency Provider Emergency Medicine
DX: D25.2 Subserosal leiomyoma of uterus (principal); N20.0 Calculus of kidney
CPT/HCPCS: 36415; 74176; 80053; 81001; 81025; 83690; 85025; 99284; A9270